=== PATIENT | female | born 1970 | race Caucasian/White ===

== ENCOUNTER 2018-05-28 12:10 | Observation (INO) | payer BC ==
[2018-05-28 13:18] VITALS: O2SAT 100
[2018-05-28 13:32] LABS: Absolute Lymphocytes (CBC) 1.6 K/uL (0.7-4.9); Absolute Monocytes 0.8 K/uL (0.1-1.3); Absolute Neutrophil 4.2 K/uL (1.8-8.0); Basophils % 0.6 % (0-1.3); Eosinophils % 2.2 % (0-4.4); Hematocrit 31.5 % (36.0-45.0); Lymphocytes % 23.6 % (15.3-44.8); MCH 30.4 pg (27.0-35.0); MPV 9.5 fL (7.6-11.3); Monocytes % 11.7 % (3.3-12.3); RBC Red Blood Cell Count 3.46 M/uL (3.86-4.86)
[2018-05-28 13:55] LABS: Rheumatoid Factor NEG (NEG)
--- NOTE | 2018-05-28 14:23 | RAD REPORT ---
EXAM DESCRIPTION: RAD - Chest Pa And Lat (2 Views) - 05/28/2018 2:10 pm CLINICAL HISTORY: Chest pain COMPARISON: December 2008 TECHNIQUE: PA and lateral views of the chest were obtained. FINDINGS: The lungs are clear of a focal consolidation, mass or significant failure finding. Lung ma rkings are not significantly different from the comparison. Diaphragm is flattened blunting the cost ophrenic angles. Heart size is normal and central vasculature is within normal limits. No pleural ef fusion or pneumothorax seen. Scoliotic curvature of the lower thoracic spine again noted. No acute b one finding. No aortic abnormality. IMPRESSION: No acute cardiopulmonary process. Chest is not significantly different from the compari son.
[2018-05-28 14:57] LABS: ALT/SGPT 15 U/L (12-78); AST/SGOT 8 U/L (15-37); Albumin 3.6 g/dL (3.4-5.0); Alkaline Phosphatase 40 U/L (45-117); BUN Blood Urea Nitrogen 6 mg/dL (7-18); Bicarbonate 31 mmol/L (21-32); Bilirubin Total 0.4 mg/dL (0.2-1.0); Glucose Level 76 mg/dL (74-106); Potassium 4.1 mmol/L (3.5-5.1); Protein, Total 6.5 g/dL (6.4-8.2); Sodium Level 145 mmol/L (136-145)
[2018-05-28 14:57] LABS: Urine Appearance CLEAR; Urine Bilirubin NEGATIVE (NEG); Urine Blood NEGATIVE (NEG); Urine Color YELLOW; Urine Glucose NEGATIVE (NEG); Urine Protein NEGATIVE (NEG); Urine Urobilinogen 0.2 mg/dL (0.2-1.0)
[2018-05-28 14:58] LABS: Urine Microscopic Reflex NO UMIC
--- NOTE | 2018-05-28 15:02 | RAD REPORT ---
EXAM DESCRIPTION: RIGHT - UPPER EXTREMITY VENOUS UNILATE - 05/28/2018 2:32 pm CLINICAL HISTORY: Right arm pain and swelling COMPARISON: None. TECHNIQUE: Real-time sonographic evaluation of the right upper extremity deep venous systems was per formed. FINDINGS: Normal compressibility, flow augmentation, phasic flow and spontaneous flow are identified in the right upper extremity axillary, brachial, radial and ulnar veins. Superficial basilic vein cl ear. Cephalic vein was not well visualized. No evidence for a thrombosed cephalic vein. No intralumin al filling defects seen. Internal jugular and subclavian veins are normal as well. IMPRESSION: No DVT in the right upper extremity.
[2018-05-29 07:45] VITALS: BP 111/51; TEMP 97.6
[2018-05-29] MEDS ORDERED: HOME MED 1 EA UNK (Brimonidine Tartrate/Timolol [Combigan 0.2%-0.5% Eye Drops] 1 DROP) EACH EYE SCH (09:00)
[2018-05-29] MEDS ORDERED: HOME MED 1 EA UNK (Brinzolamide [Azopt] 1 DROP) EACH EYE SCH (09:00)
[2018-05-29] MEDS ORDERED: APIXABAN PO SCH (09:00)
--- NOTE | 2018-05-29 12:59 | CON ---
Date of Consultation: 05/29/[address] Cooper's service on 05/28/2018. The patient was seen on 05/29/2018. Reason For Consultation: Bradycardia and chest pain. History Of Present Illness: Ms. Carbajal is a 48-year-old woman who was previously healthy until rece ntly when she developed the left upper extremity and right extremity venous thrombosis. Has been rhiannon ated with Eliquis since. She has a history of severe glaucoma for which she takes timolol, Azopt, an d Lumigan. Was seeing Dr. Cooper yesterday in his office for multiple complaints including chest pain throughout her anterior chest and lateral romo. She was having dizziness, tingling in the arms, fa tigue, was found to have a heart rate in the 30s, and she was admitted for further evaluation and rhiannon atment. She denied syncope. Denied PND, orthopnea, pedal edema, or palpitation. Repeat ultrasound of her right upper extremity was negative. Chest x-ray was negative. An echocardiogram that was don e was negative. Her TSH was normal. Her hemoglobin was 10.5. Allergies: SHE IS ALLERGIC TO PENICILLIN. Review of Systems: Negative. Social History: Negative. Medications At Home: Include Eliquis, timolol, Azopt, and Lumigan eyedrops. Physical Examination: General: Her heart rate was 43. She was in no acute distress, although she appeared to be fatigued. Vital Signs: Stable otherwise. HEENT: Negative. Neck: Supple without any bruit, lymphadenopathy, or JVD. Chest: Clear to auscultation and percussion. Cardiac: Revealed bradycardia with no murmurs, gallops, or rubs. Abdomen: Benign. Extremities: Revealed no clubbing, cyanosis, or edema. Diagnostic Data: As stated earlier. Impression And Plan: 1.I believe Ms. Carbajal's symptoms of chest pain, dizziness, tingling in the arms and fatigue are re lated to her bradycardia. I think her bradycardia is related to her eyedrops. Her TSH is normal. H er echocardiogram is normal. Her DVT has resolved on Eliquis, and I do not think this is related to her bradycardia or any of her symptoms. I will discuss the case further with Dr. Cooper; but what I w ashlynld like to do is talk to Dr. Stephen Addison, and see if there is any chance we can change her eyedr ops medication. If these eye drops are needed and she is still bradycardic, I think a pacemaker will be indicated. Meanwhile, I think she needs to have an outpatient 48 hour Holter and an outpatient s tress test and an appointment in the near future. By then, I would have discussed the case further w ronny Addison and electrophysiology services in [place]. MIREYA/VAN Voice ID: [id number] Report ID: [id number]
[2018-05-29] MEDS ORDERED: HOME MED 1 EA UNK (Bimatoprost [Lumigan Opthalmic Drops*] 1 DROP) EACH EYE SCH (21:00)
--- NOTE | 2018-05-29 21:13 | HP ---
Date of Admission: 05/28/2018 Chief Complaint: Chest pain, bradycardia. History Of Present Illness: A 48-year-old female who recently had right upper limb venous thrombus, was brought to the office because of atypical chest pain. She was examined and strikingly she had a pulse rate of 38. EKG was done. This confirmed bradycardia in view of chest pain even though it was atypical. Because of bradycardia, she was admitted for observation. There was no history of syncop e. The patient does not take any medications by mouth for any heart disease or blood pressure. Past Medical History: Positive for severe glaucoma, due to which she lost vision in the eye. Recent ly she was started on Eliquis for her DVT of the right arm. Family History: Noncontributory. Personal History: Currently nonsmoker. Home Medicines: Eliquis, eyedrops. Review of Systems: There is no history of fever, chills, rigors. Physical Examination: General: Revealed a 48-year-old female. Vital signs: Heart rate of 36, blood pressure 110/70. HEENT: Otherwise negative. Neck: Supple. JVD negative. Chest: Clear. Heart: Bradycardia. Abdomen: Soft. Extremities: No edema. Laboratory: Hemoglobin of 10.5, otherwise negative. Troponin normal. Chest x-ray negative. TSH no rmal. Assessment: 1.Bradycardia. 2.Atypical chest pain. 3.Severe glaucoma. 4.Recent deep vein thrombosis right arm. Plan: It is not clear why patient had such severe bradycardia. Cardiology consultation has been obt ained. Dr. Felipe is of the opinion that the patient very likely may be reacting to glaucoma medica tion. I spoke to Dr. Addison, who is her eye doctor. He is not able to cut down her eyedrops because of severe glaucoma with the fear of losing more vision. The patient currently will be discharged and she will be followed by Dr. Felipe in the office. Reassessment of her glaucoma and bradycardia aren l be done. NICHOL/VAN Voice ID: [id number]
--- NOTE | 2018-05-31 07:58 | ECHO ---
HEIGHT: 5 ft 5 in WEIGHT: 132 lb 0 oz DATE OF STUDY: 05/28/[address]: Trevon Cooper MD 2-DIMENSIONAL: YES M.MODE: YES DOPPLER: YES COLOR FLOW: YES TDS: NO PORTABLE: NO DEFINITY: NO BUBBLE STUDY: NO DIAGNOSIS: CHEST PAIN CARDIAC HISTORY: CATHERIZATION: NO SURGERY: NO PROSTHETIC VALVE: NO PACEMAKER: NO MEASUREMENTS (cm) DIASTOLIC (NORMALS) SYSTOLIC (NORMALS) IVSd 0.8 (0.6-1.2) LA Diam 3.4 (1.9-4.0) LVEF 66% LVIDd 5.5 (3.5-5.7) LVIDs 3.4 (2.0-3.5) %FS 37% LVPWd 0.8 (0.6-1.2) Ao Diam 2.8 (2.0-3.7) 2 DIMENSIONAL ASSESSMENT: RIGHT ATRIUM: NORMAL LEFT ATRIUM: NORMAL RIGHT VENTRICLE: NORMAL LEFT VENTRICLE: NORMAL TRICUSPID VALVE: NORMAL MITRAL VALVE: NORMAL PULMONIC VALVE: NORMAL AORTIC VALVE: NORMAL PERICARDIAL EFFUSION: NONE AORTIC ROOT: NORMAL LEFT VENTRICULAR WALL MOTION: NORMAL DOPPLER/COLOR FLOW: NORMAL COMMENTS: NORMAL 2D ECHOCARDIOGRAM WITH DOPPLER. NO WALL MOTION ABNORMALITY. NO EFFUSION. TECHNOLOGIST: Corey ROMAN
== END 2018-05-29 10:50 | disposition home or self-care (01) ==
LOC: 4TH 12:27
PROVIDERS: ADMIT Internal Medicine; ATTEND Internal Medicine
DX: R00.1 Bradycardia, unspecified (principal); R07.89 Other chest pain; H40.9 Unspecified glaucoma; Z86.718 Personal history of other venous thrombosis and embolism; Z79.01 Long term (current) use of anticoagulants; Z88.0 Allergy status to penicillin
CPT/HCPCS: 36415; 71046; 80053; 81003; 84443; 84484; 85025; 86038; 86430; 93306; 93971; G0378

== ENCOUNTER 2021-12-26 14:59 | Emergency (ER) | payer BC ==
--- OUTSIDE RECORDS SUMMARY | 2021-12-26 15:02 | XMS REPORT | Continuity of Care Document ---
:1970 Author Organization [facility] t Address [address] [place] [address] Care Team Providers Name Role Phone Pcp, Does Not Have A Primary Care Physician Nurse, Pob Immunization Attending Clinician Unavailable Drew Quick DO Attending Clinician DREW QUICK Attending Clinician Unavailable Barby VARGAS Attending Clinician Unavailable YESI Attending Clinician Unavailable Lab, Fam Pob I Attending Clinician Unavailable Yesi INSOLE STIFFENER Attending Clinician Doctor Unassigned, Name Attending Clinician Unavailable Keira Marrufo MD Attending Clinician KEIRA MARRUFO Attending Clinician Unavailable KEIRA MARRUFO Attending Clinician Unavailable Payers Payer Name Policy Type Policy Number Effective Date Expiration Date S ource Problems This patient has no known problems. Allergies, Adverse Reactions, Alerts Allergy Allergy Status Severity Reaction(s) Onset Inactive Treating Comm ents Source Name Type Date Date Clinician PENICILL Drug Active Rash 2016-10 Univers INS Class 0-06 ity of 00:00: [place] 00 Medical Branch Penicill Propensi Active Rash 2016-10 [facility] s ins ty to 0-06 ity of adverse 00:00: [place] reaction 00 Medical [facility] Social History Social Habit Start Date Stop Date Quantity Comments Source History of tobacco Smoker [facility] use [facility] [place] Exposure to Yes [facility] SARS-CoV-2 (event) Medica l Branch Tobacco use and 2020-05-29 2020-05-29 Never used [facility] exposure 00:00:00 00:00:00 Medical [place] Sex Ass[birth year] At [birth year] [facility] 00:00:00 00:00:00 [facility] Branch Smoking Status Start Date Stop Date Source Unknown if ever smoked [facility] Former smoker 2020-05-29 00:00:00 2020-05-29 00:00:00 [facility] henrietta [facility] Medications Ordered Filled Start Stop Current Ordering Indication Dosage Frequency Signature Comments Components Source Medication Medication Date Date Medication? Clinician (SIG) Name Name ibuprofen 0 Yes Take by Univ ers (ADVIL 9-18 mouth. ity of ORAL) 16:25: [address] ibuprofen 2020-0 Yes Take by Univ ers (ADVIL 9-18 mouth. ity of ORAL) 16:25: [address] ibuprofen 2020-0 Yes Take by Univ ers (ADVIL 9-18 mouth. ity of ORAL) 16:25: [address] ibuprofen 2020-0 Yes Take by Univ ers (ADVIL 9-18 mouth. ity of ORAL) 16:25: [address] ibuprofen 2020-0 Yes Take by Univ ers (ADVIL 9-18 mouth. ity of ORAL) 16:25: [address] ibuprofen 2020-0 Yes Take by Univ ers (ADVIL 9-18 mouth. ity of ORAL) 16:25: [address] ibuprofen 2020-0 Yes Take by Univ ers (ADVIL 9-18 mouth. ity of ORAL) 16:25: [address] ibuprofen 2020-0 Yes Take by Univ ers (ADVIL 9-18 mouth. ity of ORAL) 16:25: [address] ibuprofen 2020-0 Yes Take by Univ ers (ADVIL 9-18 mouth. ity of ORAL) 16:25: [address] ibuprofen 2020-0 Yes Take by Univ ers (ADVIL 9-18 mouth. ity of ORAL) 16:25: [address] ibuprofen 2020-0 Yes Take by Univ ers (ADVIL 9-18 mouth. ity of ORAL) 11:25: [address] diclofenac 2020-0 Yes [id number] 75mg Take 1 U nivers 75 mg EC 9-18 tablet by ity of tablet 00:00: mouth 3 [place] 00 (three) Medical times Branch daily with meals. Use on prn basis and not with other anti-infla mmatory medication s. cyclobenzap 2019-0 Yes [id number] 10mg Take 1 Univers rine 10 mg 9-18 tablet by ity of tablet 00:00: mouth (three) Medical times Branch daily as needed for Muscle Spasms. diclofenac 2020-0 Yes [id number] 75mg Take 1 U nivers 75 mg EC 9-18 tablet by ity of tablet 00:00: mouth (three) Medical times Branch daily with meals. Use on prn basis and not with other anti-infla mmatory medication s. cyclobenzap 2020-0 Yes [id number] 10mg Take 1 Univers rine 10 mg 9-18 tablet by ity of tablet 00:00: mouth (three) Medical times Branch daily as needed for Muscle Spasms. diclofenac 2020-0 Yes [id number] 75mg Take 1 U nivers 75 mg EC 9-18 tablet by ity of tablet 00:00: mouth (three) Medical times Branch daily with meals. Use on prn basis and not with other anti-infla mmatory medication s. cyclobenzap 2020-0 Yes [id number] 10mg Take 1 Univers rine 10 mg 9-18 tablet by ity of tablet 00:00: mouth (three) Medical times Branch daily as needed for Muscle Spasms. diclofenac 2020-0 Yes [id number] 75mg Take 1 U nivers 75 mg EC 9-18 tablet by ity of tablet 00:00: mouth (three) Medical times Branch daily with meals. Use on prn basis and not with other anti-infla mmatory medication s. cyclobenzap 2020-0 Yes [id number] 10mg Take 1 Univers rine 10 mg 9-18 tablet by ity of tablet 00:00: mouth (three) Medical times Branch daily as needed for Muscle Spasms. diclofenac 2020-0 Yes [id number] 75mg Take 1 U nivers 75 mg EC 9-18 tablet by ity of tablet 00:00: mouth (three) Medical times Branch daily with meals. Use on prn basis and not with other anti-infla mmatory medication s. cyclobenzap 2020-0 Yes [id number] 10mg Take 1 Univers rine 10 mg 9-18 tablet by ity of tablet 00:00: mouth (three) Medical times Branch daily as needed for Muscle Spasms. diclofenac 2020-0 Yes [id number] 75mg Take 1 U nivers 75 mg EC 9-18 tablet by ity of tablet 00:00: mouth (three) Medical times Branch daily with meals. Use on prn basis and not with other anti-infla mmatory medication s. cyclobenzap 2020-0 Yes [id number] 10mg Take 1 Univers rine 10 mg 9-18 tablet by ity of tablet 00:00: mouth (three) Medical times Branch daily as needed for Muscle Spasms. diclofenac 2020-0 Yes [id number] 75mg Take 1 U nivers 75 mg EC 9-18 tablet by ity of tablet 00:00: mouth (three) Medical times Branch daily with meals. Use on prn basis and not with other anti-infla mmatory medication s. cyclobenzap 2020-0 Yes [id number] 10mg Take 1 Univers rine 10 mg 9-18 tablet by ity of tablet 00:00: mouth (three) Medical times Branch daily as needed for Muscle Spasms. diclofenac 2020-0 Yes [id number] 75mg Take 1 U nivers 75 mg EC 9-18 tablet by ity of tablet 00:00: mouth (three) Medical times Branch daily with meals. Use on prn basis and not with other anti-infla mmatory medication s. cyclobenzap 2020-0 Yes [id number] 10mg Take 1 Univers rine 10 mg 9-18 tablet by ity of tablet 00:00: mouth (three) Medical times Branch daily as needed for Muscle Spasms. diclofenac 2020-0 Yes [id number] 75mg Take 1 U nivers 75 mg EC 9-18 tablet by ity of tablet 00:00: mouth (three) Medical times Branch daily with meals. Use on prn basis and not with other anti-infla mmatory medication s. cyclobenzap 2020-0 Yes [id number] 10mg Take 1 Univers rine 10 mg 9-18 tablet by ity of tablet 00:00: mouth (three) Medical times Branch daily as needed for Muscle Spasms. diclofenac 2020-0 Yes [id number] 75mg Take 1 U nivers 75 mg EC 9-18 tablet by ity of tablet 00:00: mouth (three) Medical times Branch daily with meals. Use on prn basis and not with other anti-infla mmatory medication s. cyclobenzap 2020-0 Yes [id number] 10mg Take 1 Univers rine 10 mg 9-18 tablet by ity of tablet 00:00: mouth 3 00 (three) Medical times Branch daily as needed for Muscle Spasms. diclofenac 2020-0 Yes [id number] 75mg Take 1 U nivers 75 mg EC 9-18 tablet by ity of tablet 00:00: mouth 3 00 (three) Medical times Branch daily with meals. Use on prn basis and not with other anti-infla mmatory medication s. cyclobenzap 2020-0 Yes [id number] 10mg Take 1 Univers rine 10 mg 9-18 tablet by ity of tablet 00:00: mouth 3 00 (three) Medical times Branch daily as needed for Muscle Spasms. ALPHAGAN P 2020-0 Yes INSTILL 1 Un jia 0.1 % 9-02 DROP IN ity of ophthalmic 00:00: B[place] drops 00 2 TIMES Medical DAILY Branch ALPHAGAN P 2020-0 Yes INSTILL 1 Un jia 0.1 % 9-02 DROP IN ity of ophthalmic 00:00: [place] drops 00 2 TIMES Medical DAILY Branch ALPHAGAN P 2020-0 Yes INSTILL 1 Un jia 0.1 % 9-02 DROP IN ity of ophthalmic 00:00: [place] drops 00 2 TIMES Medical DAILY Branch ALPHAGAN P 2020-0 Yes INSTILL 1 Un jia 0.1 % 9-02 DROP IN ity of ophthalmic 00:00: [place] drops 00 2 TIMES Medical DAILY Branch ALPHAGAN P 2020-0 Yes INSTILL 1 Un jia 0.1 % 9-02 DROP IN ity of ophthalmic 00:00: [place] drops 00 2 TIMES Medical DAILY Branch ALPHAGAN P 2020-0 Yes INSTILL 1 Un jia 0.1 % 9-02 DROP IN ity of ophthalmic 00:00: [place] drops 00 2 TIMES Medical DAILY Branch ALPHAGAN P 2020-0 Yes INSTILL 1 Un jia 0.1 % 9-02 DROP IN ity of ophthalmic 00:00: B[place]YES [place] drops 00 2 TIMES Medical DAILY Branch ALPHAGAN P 2020-0 Yes INSTILL 1 Un jia 0.1 % 9-02 DROP IN ity of ophthalmic 00:00: B[place]YES [place] drops 00 2 TIMES Medical DAILY Branch ALPHAGAN P 2020-0 Yes INSTILL 1 Un jia 0.1 % 9-02 DROP IN ity of ophthalmic 00:00: B[place]YES [place] drops 00 2 TIMES Medical DAILY Branch ALPHAGAN P 2020-0 Yes INSTILL 1 Un jia 0.1 % 9-02 DROP IN ity of ophthalmic 00:00: B[place]YES [place] drops 00 2 TIMES Medical DAILY Branch ALPHAGAN P 2020-0 Yes INSTILL 1 Un jia 0.1 % 9-02 DROP IN ity of ophthalmic 00:00: [place] drops 00 2 TIMES Medical DAILY Branch phenazopyri 2016- Yes 200mg Take 1 Uni vers dine 200 mg 0-06 tablet by ity of tablet 00:00: mouth (three) Medical times Branch daily. phenazopyri 2016- Yes 200mg Take 1 Uni vers dine 200 mg 0-06 tablet by ity of tablet 00:00: mouth (three) Medical times Branch daily. phenazopyri 2016- Yes 200mg Take 1 Uni vers dine 200 mg 0-06 tablet by ity of tablet 00:00: mouth (three) Medical times Branch daily. phenazopyri 2016-10 Yes 200mg Take 1 Uni vers dine 200 mg 0-06 tablet by ity of tablet 00:00: mouth (three) Medical times Branch daily. phenazopyri 2016-10 Yes 200mg Take 1 Uni vers dine 200 mg 0-06 tablet by ity of tablet 00:00: mouth (three) Medical times Branch daily. phenazopyri 2016- Yes 200mg Take 1 Uni vers dine 200 mg 0-06 tablet by ity of tablet 00:00: mouth (three) Medical times Branch daily. phenazopyri 2016- Yes 200mg Take 1 Uni vers dine 200 mg 0-06 tablet by ity of tablet 00:00: mouth (three) Medical times Branch daily. phenazopyri 2016- Yes 200mg Take 1 Uni vers dine 200 mg 0-06 tablet by ity of tablet 00:00: mouth 3 (three) Medical times Branch daily. phenazopyri 2016- Yes 200mg Take 1 Uni vers dine 200 mg 0-06 tablet by ity of tablet 00:00: mouth 3 (three) Medical times Branch daily. phenazopyri 2017- Yes 200mg Take 1 Uni vers dine 200 mg 0-06 tablet by ity of tablet 00:00: mouth 3 (three) Medical times Branch daily. phenazopyri 2017- Yes 200mg Take 1 Uni vers dine 200 mg 0-06 tablet by ity of tablet 00:00: mouth 3 (three) Medical times Branch daily. phenazopyri 2016- Yes 200mg Take 1 Uni vers dine 200 mg 0-06 tablet by ity of tablet 00:00: mouth 3 (three) Medical times Branch daily. phenazopyri 2016- Yes 200mg Take 1 Uni vers dine 200 mg 0-06 tablet by ity of tablet 00:00: mouth 3 (three) Medical times Branch daily. phenazopyri 2016- Yes 200mg Take 1 Uni vers dine 200 mg 0-06 tablet by ity of tablet 00:00: mouth (three) Medical times Branch daily. phenazopyri 2016- Yes 200mg Take 1 Uni vers dine 200 mg 0-06 tablet by ity of tablet 00:00: mouth (three) Medical times Branch daily. phenazopyri 2016- Yes 200mg Take 1 Uni vers dine 200 mg 0-06 tablet by ity of tablet 00:00: mouth (three) Medical times Branch daily. phenazopyri 2016- Yes 200mg Take 1 Uni vers dine 200 mg 0-06 tablet by ity of tablet 00:00: mouth [place] (three) Medical times Branch daily. Immunizations Ordered Filled Immunization Date Status Comments [facility] e Immunization Name Name SARS-COV-2 COVID-19 2021-08-26 Completed Unive rsity of PFIZER VACCINE 00:00:00 [facility] SARS-COV-2 COVID-19 2021-01-23 Completed Unive rsity of PFIZER VACCINE 00:00:00 [facility] SARS-COV-2 COVID-19 2021-01-02 Completed Unive rsity of PFIZER VACCINE 00:00:00 [facility] Vital Signs Vital Name Observation Time Observation Value Comments Source Systolic blood 2020-06-29 16:24:00 127 mm[Hg] Univer sity of pressure [facility] Diastolic blood 2020-06-29 16:24:00 71 mm[Hg] Unive rsity of pressure [facility] Heart rate 2020-06-29 16:24:00 53 /min Universi ty [facility] Body temperature 2020-06-29 16:24:00 36.72 [facility] [place] [facility] Respiratory rate 2020-06-29 16:24:00 18 /min [facility] [place] [facility] Body height 2020-06-29 16:24:00 160 cm Universi ty of [facility] Body weight 2020-06-29 16:24:00 76.204 kg Universi ty of [facility] BMI 2020-06-29 16:24:00 29.76 kg/m2 Universi ty [facility] Systolic blood 2020-05-29 19:02:00 150 mm[Hg] Univer sity of pressure [facility] Diastolic blood 2020-05-29 19:02:00 86 mm[Hg] Unive rsity of [facility] Heart rate 2020-05-29 19:02:00 52 /min Universi ty [facility] Body temperature 2020-05-29 19:02:00 36.78 [facility] [place] [facility] Body weight 2020-05-29 19:02:00 77.111 kg Universi ty [facility] BMI 2020-05-29 19:02:00 30.11 kg/m2 Universi ty [facility] Procedures Procedure Date / Time Performed Performing Clinician [facility] e SARS-COV-2 COVID-19 2021-08-26 22:30:34 [facility]igned, [facility]IM Name [facility] [place] (PFIZER) EXTERNAL PROVIDER 2020-11-09 06:01:00 Doctor Unassigned, No [facility] RECORDS [facility] Medical Branch MR LUMBAR SPINE WO 2020-06-12 19:49:[address] [facility] Medical [place] ASSIGNMENT OF BENEFITS 2020-06-12 18:40:04 Doctor Unassigned, No [facility] Medical Branch ASSIGNMENT OF BENEFITS 2020-05-29 18:46:35 Doctor Unassigned, No [facility] Encounters Start End Encounter Admission Attending Care Care Encounter Source Date/Time Date/Time Type Type Clinicians Facility Department ID 2021-08-26 2021-08-26 Imm/Inj Nurse, Adc Pob Immunization [facility] [id number] [id number] Univers 16:18:28 16:19:14 Visit Jonah Balta Drew IBANEZ [id number] .10 [id number] [id number] Me dical NAL 421 [facility] 2021-08-26 2021-08-26 [facility] [id number] Univers 16:10:00 16:10:00 BALTA [facility] 2021-01-23 2021-01-23 Outpatient R ALICIA [facility] [id number] Univers 15:50:00 15:50:00 ANDERS [facility] 2021-01-02 2021-01-02 Outpatient [facility] [id number] Univers 16:10:00 16:10:00 [facility] 2020-12-27 2020-12-27 Patient Jonah [facility] [id number] Univers 00:00:00 00:00:00 Outreach Balta GEOFF [id number] i ty Drew [facility] [id number] [id number] Me dical [address] [place] 2020-12-23 2020-12-23 Outpatient R [facility] [id number] Univers 13:40:00 13:40:00 [id number] [facility] 2020-12-23 2020-12-23 Outpatient R [facility] [id number] Univers 13:40:00 13:40:00 [facility] 2020-12-23 2020-12-23 Laboratory Lab, [facility] Fam Pob I [facility] 1.2. [id number] [id number] Univers 12:28:47 12:48:47 Only [facility] [id number] ity of [place] [id number] [place] as Professio [phone] Me dical nal [address] [place] [address] 2020-11-09 2020-11-09 Orders Doctor DARLENE 1.2.840.114 [id number] Univers 00:00:00 00:00:00 Only Unassigned, LIN [id number] ity of [place] [facility] [id number] [place] [phone] [address] 2020-08-08 2020-08-08 Telephone Niru [facility] .[id number] Univers 00:00:00 00:00:00 Jose Ibanez [id number] ity [id number] [phone] Nh dical nal [address] [place] [address] 2020-08-07 2020-08-07 Outpatient R [facility] [id number] Univers 12:00:00 12:00:00 [id number] [facility] 2020-08-07 2020-08-07 Outpatient R NIRUJOSE Coffey [facility] [id number] Univers 12:00:00 12:00:00 JOSE MARRUFO [facility] 2020-06-29 2020-06-29 Office Niru [facility] 1.2.840.114 [id number] Univers 11:11:10 11:49:02 Visit Jose Ibanez [id number] [id number] [phone] Nh dical nal [address] [place] [address] 2020-06-29 2020-06-29 Outpatient JOSE MARRUFO [facility] [id number] Univers 11:20:00 11:20:00 JOSE MARRUFO [id number] [facility] 2020-06-29 2020-06-29 Outpatient R INRUJOSE Coffey [facility] [id number] Univers 11:20:00 11:20:00 NIRU JOSE trena [facility] 2020-06-13 2020-06-13 Telephone Niru [facility] 1.2.840.114 [id number] Univers 00:00:00 00:00:00 Jose Ibanez [id number] [id number] [phone] Nh dical nal 092 [facility] 2020-06-12 2020-06-12 Hospital Niru [facility] [id number] Univers 13:49:20 23:59:00 Encounter Jose Ibanez [id number] [id number] [id number] [facility] 804 [place] 2020-06-12 2020-06-12 Outpatient Sierra NIRUJOSE LINDSEY [facility] [id number] Univers 14:00:00 14:00:00 NIRUJOSE Coffey [id number] ity [facility] 2020-06-12 2020-06-12 Outpatient R NIRUJOSE Coffey [facility] [id number] Univers 00:00:00 00:00:00 NIRUJOSE Coffey ity [facility] 2020-06-12 2020-06-12 Orders Doctor DARLENE [id number] [id number] Univers 00:00:00 00:00:00 Only Unassigned, LIN [id number] ity of [place] [facility] [id number] [place] as [id number] [facility] 009 [place] 2020-05-29 2020-05-29 Office Niru [facility] 1.2.840.114 [id number] Univers 13:48:08 15:10:10 Visit Jose Ibanez [id number] [id number] [facility] [phone] [facility] nal 2 [facility] 2020-05-29 2020-05-29 Outpatient R NIRUJOSE LINDSEY [facility] [id number] Univers 13:40:00 13:40:00 [facility] 2020-05-29 2020-05-29 Orders Doctor DARLENE 1.2.840.114 [id number] Univers 00:00:00 00:00:00 Only Unassigned, LIN [id number] ity of [place] [facility] [id number] [place] [phone] [address] Results Test Test Test Results Result Source Description Time Comments Comments MR LUMBAR SPINE HISTORY: History of fall [facility] several weeks ago and Te [facility] 19:57:32 having back pain and Bran ch leftleg pain. TECHNIQUE: Sagittal T2 FRFSE, T1, STIR and axial T2 FRFSE T1 studies oflumbar spines are obtained. Additional coronal T2 FRFSE study is alsoobtained. FINDINGS: Exaggerated lumbosacral lordosis with mild dextroscoliosis noted.No acute compression fracture or aggressive lesions of the bones detected.Spinal canal appears to be of adequate size and normal conus/cauda equinaare found at the level of T12/L1. Visualized retroperitoneum isunremarkable for aortic aneurysm or enlarged lymph nodes or hydronephrosis. T11-T12, T12-L1, L1-L2: Unremarkable. L2-L3: Minimal annular bulge causing minimal thecal sac compression. Nosignificant foraminal encroachment. L3-L4: Minimal annular bulge. Slightly thickened ligamentum flavum fromfacet arthritis. No significant thecal sac compression or foraminalencroachment. L4-L5: Minimal disc desiccation with minimal bulging of the disc, bilateralhypertrophic facet arthritis with thickened ligamentum flavum and smallamount of fluid in both facet joints. Mild circumferential thecal saccompression noted. Foraminal encroachment is seen on both sides, slightlymore on the right side but minimal nerve root compression suspected.Adjacent to lower outer edge of the left facet joint, 7 mm sizemultilocular synovial cyst noted. L5-S1: Minimal anterior listhesis of L5 over S1 with minimal disc bulgewithout thecal sac compression. Hypertrophic bilateral facet arthritis withfluid in both facet joints. Adjacent to the outer edge of the left facetjoint, there is a multilocular 1.5 x 0.8 cm synovial cyst. In addition,thick walled 6 to 8 mm I synovial cyst are seen protruding into the spinalcanal from both facet joints causing thecal sac compression and nerve rootcompression, more on the left side. CONCLUSIONS:1. Exaggerated lumbosacral lordosis with mild dextroscoliosis of lumbarspines.2. Multilevel facet arthritis, more severe at lower 2 lumbar levels withsynovial cysts encroaching into the spinal canal on both sides, more on theleft side, at L5-S1 causing thecal sac and nerve root compression.3. 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 [facility], Radiant Results Inft User - 06/12/2020 2:58 PM CDTHISTORY: History of fall several weeks ago and having back pain and leftleg pain.TECHNIQUE: Sagittal T2 FRFSE, T1, STIR and axial T2 FRFSE T1 studies oflumbar spines are obtained. Additional coronal T2 FRFSE study is alsoobtained.FINDINGS: Exaggerated lumbosacral lordosis with mild dextroscoliosis noted.No acute compression fracture or aggressive lesions of the bones detected.Spinal canal appears to be of adequate size and normal conus/cauda equinaare found at the level of T12/L1. Visualized retroperitoneum isunremarkable for aortic aneurysm or enlarged lymph nodes or hydronephrosis.T11-T12, T12-L1, L1-L2: Unremarkable.L2-L3: Minimal annular bulge causing minimal thecal sac compression. Nosignificant foraminal encroachment.L3-L4: Minimal annular bulge. Slightly thickened ligamentum flavum fromfacet arthritis. No significant thecal sac compression or foraminalencroachment.L4-L 5: Minimal disc desiccation with minimal bulging of the disc, bilateralhypertrophic facet arthritis with thickened ligamentum flavum and smallamount of fluid in both facet joints. Mild circumferential thecal saccompression noted. Foraminal encroachment is seen on both sides, slightlymore on the right side but minimal nerve root compression suspected.Adjacent to lower outer edge of the left facet joint, 7 mm sizemultilocular synovial cyst noted.L5-S1: Minimal anterior listhesis of L5 over S1 with minimal disc bulgewithout thecal sac compression. Hypertrophic bilateral facet arthritis withfluid in both facet joints. Adjacent to the outer edge of the left facetjoint, there is a multilocular 1.5 x 0.8 cm synovial cyst. In addition,thick walled 6 to 8 mm I synovial cyst are seen protruding into the spinalcanal from both facet joints causing thecal sac compression and nerve rootcompression, more on the left side.CONCLUSIONS:1. Exaggerated lumbosacral lordosis with mild dextroscoliosis of lumbarspines.2. Multilevel facet arthritis, more severe at lower 2 lumbar levels withsynovial cysts encroaching into the spinal canal on both sides, more on theleft side, at L5-S1 causing thecal sac and nerve root compression.3. 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
[2021-12-26] MEDS ORDERED: KETOROLAC 30 MG/ML INJ ONE (15:28)
[2021-12-26] MEDS ORDERED: NA CHLORIDE 0.9% 1,000 ML ONE (15:31)
[2021-12-26 15:34] LABS: Urine Blood Trace-intact (Negative); Urine Glucose Negative (Negative); Urine Protein 2+ (Negative); Urine Specific Gravity 1.025 (1.005-1.030)
[2021-12-26 15:45] LABS: Absolute Lymphocytes (CBC) 1.5 K/uL (0.7-4.9); Hematocrit 34.2 % (36.0-45.0); Lymphocytes % 9.4 % (15.3-44.8); MPV 8.9 fL (7.6-11.3)
[2021-12-26 16:03] LABS: ALT/SGPT 13 U/L (12-78); AST/SGOT 10 U/L (15-37); Albumin 3.5 g/dL (3.4-5.0); Alkaline Phosphatase 64 U/L (45-117); BUN Blood Urea Nitrogen 11 mg/dL (7-18); Bicarbonate 30 mmol/L (21-32); Glucose Level 103 mg/dL (74-106); Lipase 92 U/L (73-393); Protein, Total 7.3 g/dL (6.4-8.2); Sodium Level 139 mmol/L (136-145)
[2021-12-26 16:24] LABS: Urine Bacteria 20-50 /HPF (<20)
--- NOTE | 2021-12-26 17:02 | RAD REPORT ---
EXAM DESCRIPTION: CT - Abdomen Pelvis W Contrast - 12/26/2021 4:30 pm CLINICAL HISTORY: RLQ PAIN COMPARISON: No comparisonsNo comparisons TECHNIQUE: Biphasic, helical CT imaging of the abdomen and pelvis was performed following 100 ml non -ionic IV contrast. No oral contrast was given. All CT scans are performed using dose optimization technique as appropriate and may include automated exposure control or mA/KV adjustment according to patient size. FINDINGS: No suspicious findings in the lung bases. The liver, spleen, and pancreas show no suspicious findings.Normal variant Reidel lobe configuration of liver. Gallbladder and biliary tree are also without suspicious finding. Symmetric renal function is seen with no hydronephrosis or suspicious renal mass. No pyelonephritis o r acute parenchymal process. No bladder abnormalities. No adrenal abnormalities. No uterine or ovaria n abnormality evident. No dilated bowel loops or bowel wall thickening. Moderately large stool volume fills the colon. No ap pendicitis findings. No free air, free fluid or inflammatory stranding. No hernia, mass or bulky lym phadenopathy. No suspicious bony findings. Patient has very advanced for age degenerative changes at the L4-5 and L 5-S1 facet joints. IMPRESSION: Contrast enhanced CT abdomen and pelvis showing no acute or emergent finding. Nonacute findings detailed in the body of the report.
--- NOTE | 2021-12-26 17:17 | ER ---
Nurse's Notes [facility] Name: Johanna Carbajal Age: 51 yrs Sex: Female : 1970 Arrival Date: 12/26/2021 Time: 15:03 Bed 16 Private MD: Diagnosis: UTI/ Urinary tract infection, site not specified;Hypokalemia;Lower abdominal pain, unspecified Presentation: 12/26 15:06 Chief complaint: Patient states: i thought i had a UTI, that started Thursday. my right tw2 side was hurting and into my back. i called my dr today and i just left from there and my urine was clear. so they sent me here to rule out appendicitis. Coronavirus screen: At this time, the client does not indicate any symptoms associated with coronavirus-19. Ebola Screen: Patient denies travel to an Ebola-affected area in the 21 days before illness onset. Initial Sepsis Screen: Does the patient meet any 2 criteria? No. Patient's initial sepsis screen is negative. Does the patient have a suspected source of infection? No. Patient's initial sepsis screen is negative. Risk Assessment: Do you want to hurt yourself or someone else? Patient reports no desire to harm self or others. Onset of symptoms was December 26, 2021. 15:06 Method Of Arrival: Ambulatory tw2 15:06 Acuity: YANETH 3 tw2 Triage Assessment: 15:11 General: Appears in no apparent distress. well groomed, Behavior is calm, cooperative, tw2 appropriate for age. Pain: Complains of pain in right lower quadrant Pain radiates to back. GI: Reports lower abdominal pain, upper abdominal pain. 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 - Social history:: Smoking status: Patient denies any tobacco usage or history of. Screenin:14 Abuse screen: Denies threats or abuse. Nutritional screening: No deficits noted. tw2 Tuberculosis screening: No symptoms or risk factors identified. Fall Risk None identified. Assessment: 15:25 Reassessment: No changes from previously documented assessment. Pain: Complains of pain jg9 in right lower quadrant Pain does not radiate. Pain currently is 3 out of 10 on a pain scale. at worst was 6 out of 10 on a pain scale. 15:25 GI: Bowel sounds present X 4 quads. Abd is soft Abdomen is tender to palpation in right jg9 upper quadrant and right lower quadrant. Vital Signs: 15:06 BP 112 / 79; Pulse 81; Resp 18; Temp 98.1(TE); Pulse Ox 99% on R/A; Weight 70.76 kg tw2 (R); Height 5 ft. 3 in. (160.02 cm); Pain 4/10; 15:55 BP 95 / 70; Pulse 69; Resp 17 S; Pulse Ox 100% on R/A; jg9 16:15 BP 99 / 62; Pulse 63; Resp 17 S; Pulse Ox 100% on R/A; jg9 17:15 BP 113 / 67; Pulse 68; Resp 15 S; Pulse Ox 98% on R/A; Pain 0/10; jg9 15:06 Body Mass Index 27.63 (70.76 kg, 160.02 cm) tw2 ED Course: 15:03 Patient arrived in ED. ds1 15:08 Triage completed. tw2 15:11 Arm band placed on. tw2 15:11 Bed in low position. Call light in reach. tw2 15:15 Sloan Gr MD is Attending Physician. jr11 15:27 Roseline Mccabe, MARISELA is Primary Nurse. jg9 15:30 Inserted saline lock: 22 gauge in right antecubital area, using aseptic technique. jg9 Blood collected. 15:34 Urine Dipstick-Ancillary Sent. mh5 15:34 Urine Microscopic Only Sent. mh5 15:34 Urine collected: clean catch specimen, cloudy. mh5 15:35 Warm blanket given. Pulse ox on. NIBP on. mh5 16:30 CT Abd/Pelvis - IV Contrast Only In Process Unspecified. EDMS 17:30 No provider procedures requiring assistance completed. jg9 17:30 IV discontinued. jg9 Administered Medications: 15:33 Drug: Ketorolac 15 mg Route: IVP; Site: left antecubital; jg9 16:00 Follow up: Response: No adverse reaction; Pain is decreased jg9 15:34 Drug: NS 0.9% 1000 ml Route: IV; Rate: 1 bolus; Site: left antecubital; jg9 16:15 Follow up: IV Status: Completed infusion; IV Intake: 1000ml jg9 17:24 Drug: Cipro (ciprofloxacin) 500 mg Route: PO; jg9 17:25 Follow up: Response: No adverse reaction; Medication administered at discharge. jg9 17:25 Drug: Potassium Chloride 40 mEq Route: PO; jg9 17:25 Follow up: Response: No adverse reaction; Medication administered at discharge. jg9 Intake: 16:15 IV: 1000ml; Total: 1000ml. jg9 Outcome: 17:16 Discharge ordered by . jr11 17:30 Discharged to home ambulatory. jg9 17:30 Condition: stable 17:30 Discharge instructions given to patient, Instructed on discharge instructions, follow up and referral plans. Demonstrated understanding of instructions, follow-up care, Prescriptions given X 2. 17:31 Patient left the ED. jg9 Signatures: Dispatcher [employer] EDHI Carmen Corona ds1 Wendy uBrgos RN RN tw2 Morelia Oliveira Roseline Jorgensen RN RN jg9 Sloan Gr MD MD jr11 Corrections: (The following items were deleted from the chart) 15:11 15:10 Home Meds: None; 15:11 15:10 Home Meds: Glaucoma;
--- NOTE | 2021-12-26 17:17 | EDPHYS ---
Physician Documentation [facility] Name: Johanna Carbajal Age: 51 yrs Sex: Female : 1970 Arrival Date: 12/26/2021 Time: 15:03 Bed 16 Private MD: ED Physician Sloan Gr HPI: 12/26 15:25 This 51 yrs old Female presents to ER via Ambulatory with complaints of Abdominal Pain. jr11 15:25 The patient presents with abdominal pain right lower quadrant. Onset: The jr11 symptoms/episode began/occurred 4 day(s) ago. The symptoms do not radiate. Associated signs and symptoms: Pertinent positives: dysuria, Pertinent negatives: nausea and vomiting, diarrhea, palpitations, shortness of breath. The symptoms are described as dull, intermittent. Modifying factors: The symptoms are alleviated by nothing, the symptoms are aggravated by nothing. Severity of pain: At its worst the pain was moderate in the emergency department the pain is a 3 / 10. no history of abdominal surgeries. 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 - Social history:: Smoking status: Patient denies any tobacco usage or history of. ROS: 15:25 All other systems are negative. jr11 17:17 Constitutional: Negative for fever, chills jr11 Exam: 15:25 Constitutional: This is a well developed, well nourished patient who is awake, alert, jr11 and in no acute distress. Head/Face: Normocephalic, atraumatic. Eyes: Extra-ocular motions intact. Lids and lashes normal. Conjunctiva and sclera are non-icteric and not injected. Cornea within normal limits. Periorbital areas with no swelling, redness, or edema. ENT: Nares patent. No nasal discharge, no septal abnormalities noted. Oropharynx with no redness, swelling, or masses, exudates, or evidence of obstruction, uvula midline. Mucous membranes moist. Cardiovascular: Regular rate and rhythm with a normal S1 and S2. No gallops, murmurs, or rubs. Normal PMI, no JVD. No pulse deficits. Respiratory: Lungs have equal breath sounds bilaterally, clear to auscultation and percussion. No rales, rhonchi or wheezes noted. No increased work of breathing, no retractions or nasal flaring. Abdomen/GI: TTP RLQ, no peritoneal signs Back: No spinal tenderness. No costovertebral tenderness. Full range of motion. MS/ Extremity: Pulses equal, no cyanosis. Neurovascular intact. Full, normal range of motion. Neuro: Awake and alert, GCS 15, oriented to person, place, time, and situation. No gross motor or sensory deficits. Vital Signs: 15:06 BP 112 / 79; Pulse 81; Resp 18; Temp 98.1(TE); Pulse Ox 99% on R/A; Weight 70.76 kg tw2 (R); Height 5 ft. 3 in. (160.02 cm); Pain 4/10; 15:55 BP 95 / 70; Pulse 69; Resp 17 S; Pulse Ox 100% on R/A; jg9 16:15 BP 99 / 62; Pulse 63; Resp 17 S; Pulse Ox 100% on R/A; jg9 17:15 BP 113 / 67; Pulse 68; Resp 15 S; Pulse Ox 98% on R/A; Pain 0/10; jg9 15:06 Body Mass Index 27.63 (70.76 kg, 160.02 cm) tw2 MDM: 15:23 Patient medically screened. jr11 15:25 Differential diagnosis: appendicitis, diverticulitis, non-specific abd pain, urinary jr11 tract infection. Data reviewed: vital signs, nurses notes, lab test result(s), radiologic studies. ED course: Patient is a 51 with worsening right lower quadrant pain, given location will rule out appendicitis with a CT scan and also any other acute intra-abdominal pathology. Also send for urine to rule out UTI. Patient also to be ruled out for kidney stone.. 17:15 ED course: Patient came back positive for urinary tract infection, pain is under jr11 control, she does have a leukocytosis but normal vital signs. No concern for sepsis. Symptoms have been going on for most a week. Will treat with antibiotics, strict return precautions. Pain is under control, patient reassessed. Patient also with slight hypokalemia, will replete in the ED and asked her to continue on high potassium rich diet for 1 week. 12/26 15:24 Order name: CBC with Diff; Complete Time: 16:24 [facility] 12/26 15:24 Order name: CMP; Complete Time: 16:24 [facility] 12/26 15:24 Order name: Lipase; Complete Time: 16:24 [facility] 12/26 15:24 Order name: Urine Microscopic Only; Complete Time: 16:25 [facility] 12/26 15:34 Order name: Urine Dipstick-Ancillary [facility] 12/26 15:34 Order name: Urine Dipstick-Ancillary; Complete Time: 15:45 [facility] 12/26 15:24 Order name: CT Abd/Pelvis - IV Contrast Only; Complete Time: 17:12 [facility] 12/26 15:24 Order name: IV Saline Lock; Complete Time: 15:33 [facility] 12/26 15:24 Order name: Labs collected and sent; Complete Time: 15:33 [facility] 12/26 16:26 Order name: Urine Culture [facility] Administered Medications: 15:33 Drug: Ketorolac 15 mg Route: IVP; Site: left antecubital; jg9 16:00 Follow up: Response: No adverse reaction; Pain is decreased 9 15:34 Drug: NS 0.9% 1000 ml Route: IV; Rate: 1 bolus; Site: left antecubital; jg9 16:15 Follow up: IV Status: Completed infusion; IV Intake: 1000ml j9 17:24 Drug: Cipro (ciprofloxacin) 500 mg Route: PO; jg9 17:25 Follow up: Response: No adverse reaction; Medication administered at discharge. jg9 17:25 Drug: Potassium Chloride 40 mEq Route: PO; jg9 17:25 Follow up: Response: No adverse reaction; Medication administered at discharge. jg9 Disposition Summary: 12/26/21 17:16 Discharge Ordered Location: Home [facility] Condition: Stable jr11 Diagnosis - UTI/ Urinary tract infection, site not specified jr11 - Hypokalemia jr11 - Lower abdominal pain, unspecified jr11 Discharge Instructions: - Discharge Summary Sheet jr11 - Abdominal Pain, Adult jr11 - Urinary Tract Infection, Adult jr11 - Hypokalemia jr11 Forms: - Medication Reconciliation Form jr11 - Thank You Letter jr11 - Antibiotic Education jr11 - Prescription Opioid Use jr11 Prescriptions: - Ibuprofen 600 mg Oral Tablet - take 1 tablet by ORAL route every 6 hours As needed take with food; 30 tablet; jr11 Refills: 0, Product Selection Permitted - Cipro 500 mg Oral Tablet - take 1 tablet by ORAL route every 12 hours for 7 days; 14 tablet; Refills: 0, jr11 Product Selection Permitted Signatures: Dispatcher [employer] Wendy Bailey RN RN tw2 Roseline Mccabe RN RN jg9 Sloan Gr MD MD jr11 Corrections: (The following items were deleted from the chart) 15:11 15:10 Home Meds: None; 15:11 15:10 Home Meds: Glaucoma;
[2021-12-26] MEDS ORDERED: POTASSIUM CL SA 10 MEQ TAB PO ONE (17:20)
[2021-12-26] MEDS ORDERED: CIPROFLOXACIN HCL 500 MG TAB ONE (17:21)
[2021-12-26 17:43] VITALS: TEMP 98.1
[2021-12-26 17:47] VITALS: BP 113/67; O2SAT 98
== END 2021-12-26 17:31 | disposition home or self-care (01) ==
LOC: ER 14:59
DX: N39.0 Urinary tract infection, site not specified (principal); E87.6 Hypokalemia; Z88.0 Allergy status to penicillin
CPT/HCPCS: 96361; 87088; 85025; 87086; 36415; 87077; 87186; 83690; 80053; 74177; 96374; 99284; Q9967; J7030; 81003; 81015

== ENCOUNTER 2022-10-03 08:22 | Day surgery (SDC) | payer BC ==
[2022-10-01 11:46] LABS: Absolute Lymphocytes (CBC) 1.5 K/uL (0.7-4.9); Hematocrit 37.8 % (36.0-45.0); Lymphocytes % 20.9 % (15.3-44.8); MCV 86.5 fL (80-100); RBC Red Blood Cell Count 4.37 M/uL (3.86-4.86)
[2022-10-01 11:55] LABS: Potassium 3.9 mmol/L (3.5-5.1)
[2022-10-03] MEDS ORDERED: Ringers Lactate 1,000 ML IV ONE (08:44)
[2022-10-03] MEDS ORDERED: CEFAZOLIN SODIUM 2 GM/VIAL ONE (08:44)
[2022-10-03] MEDS ORDERED: CEFTRIAXONE 1000 MG/VIAL ONE (09:26)
[2022-10-03] MEDS ORDERED: FENTANYL CITR 100 MCG/2 ML ONE (10:35)
[2022-10-03] MEDS ORDERED: propofoL 200 MG/20 ML VIAL IV ONE (10:35)
[2022-10-03] MEDS ORDERED: MIDAZOLAM HCL 2 MG/2 ML INJ ONE (10:36)
[2022-10-03] MEDS ORDERED: LIDOCAINE 2% MPF 5 ML VIAL ONE (10:36)
[2022-10-03] MEDS ORDERED: ROCURONIUM 50 MG/5 ML VIAL IV ONE (10:36)
[2022-10-03] MEDS ORDERED: BUPIVACAINE 0.25% PF 30 ML VIAL ONE (10:42)
[2022-10-03] MEDS ORDERED: NS 0.9% VIAL 10 ML ONE (10:58)
[2022-10-03] MEDS ORDERED: KETOROLAC 30 MG/ML INJ ONE (11:23)
[2022-10-03] MEDS ORDERED: dexAMETHasone 10 MG/ML VIAL ONE (11:23)
[2022-10-03] MEDS ORDERED: ONDANSETRON 4 MG/2 ML VIAL ONE ×2 (11:23→13:02)
[2022-10-03] MEDS ORDERED: EPHEDRINE SULF 50 MG/ML VIAL ONE (11:27)
[2022-10-03] MEDS ORDERED: GLYCOPYRROLATE 0.2 MG/ML SYR ONE ×2 (11:29→11:53)
[2022-10-03] MEDS ORDERED: NEOSTIGMINE 1 MG/ML -5 ML ONE (11:53)
--- NOTE | 2022-10-03 12:01 | P.OP ---
Preoperative diagnosis: Umbilical Hernia Postoperative diagnosis: Umbilical Hernia Primary procedure: Laparoscopic Umbilical Hernia Repair with mesh Anesthesia: GETA + Local Estimated blood loss: <5cc Specimen: Hernia Contents Findings: ~2cm umbilical hernia with adipose - reducible Complications: None Implants: Bard Ventralite ST mesh with echo 11.4cm round, sorbafix Transferred to: Recovery Room Condition: Good
[2022-10-03] MEDS: HYDROMORPHONE HCL 1 MG/ML INJ ONE ×4 (12:09→12:33)
[2022-10-03] MEDS ORDERED: HYDROMORPHONE HCL 1 MG/ML INJ ONE (12:44)
[2022-10-03 13:31] VITALS: BP 135/72; TEMP 96; O2SAT 97
[2022-10-03] MEDS ORDERED: PROMETHAZINE INJ 25 MG/ML AMP ONE (13:54)
--- NOTE | 2022-10-03 19:03 | OP ---
Date of Procedure: 10/03/2022 Surgeon: Phillip Tripp MD, Preoperative Diagnosis: Umbilical hernia. Postoperative Diagnosis: Umbilical hernia. Procedure Performed: Laparoscopic umbilical hernia repair with mesh. Anesthesia: General endotracheal plus local. Estimated Blood Loss: Less than 5 cc. Specimen: Hernia contents. Findings: 2 cm umbilical hernia with adipose, reducible. Complications: None. Implants: Bard Ventralight ST mesh with Echo Positioning System 1.4 cm round mesh utilized, SorbaFix absorbable fixation tacks. Disposition: The patient was transferred to recovery room in good condition. Procedure In Detail: After informed consent was obtained, patient was brought to the operating room and prepped and draped in the usual sterile fashion after adequate anesthesia was achieved. The area of the left upper quadrant was anesthetized with 0.25% Marcaine and sharply incised. A 5 mm trocar was placed under direct visualization without evidence of any complication. Insufflation was obtaine d at 15 mmHg at this time. No injury to vital structures upon entry into the abdomen. Additional tr ocar was placed in the left lower quadrant and this was similarly anesthetized and sharply incised. A 12 mm trocar was placed under direct visualization without evidence of any complication. I proceed ed to take down the adipose tissue from the anterior abdominal wall to allow for appropriate landing zone of a mesh to be secured. I then removed the adipose tissue from the hernia, which was found to be an umbilical hernia, reducible with some preperitoneal adipose tissue. This was swept clear, take n out of the hernia defect, and sent off for pathologic examination after being removed through the t rocar. No additional hemostatic maneuvers were required. The abdominal wall was in good apposition at this point. I then brought in the 11.4 cm Bard Ventralight mesh and positioned it on the back tab le in preparation for placement and deployment. At this point, I used the Endo Stitch with the 0 V-L oc suture to close the hernia defect, imbricating the hernia sac in the midline in a running fashion with good apposition of the tissue and closure of the defect. At this point, the 11.[address] mesh with Echo Positioning System was deployed in the abdomen in the central portion of the hernia defect and secured to the anterior abdominal wall using a combination of SorbaFix absorbable f ixation tacks. A single crown was placed at this point. The balloon deployment system was then elvin santa and found to be intact on the back table. I then secured the remaining tacks to the anterior abd ominal wall for a double crown type orientation with mesh in good position to the anterior bowel wall . Mesh was in good position at the end of procedure without any additional hemostatic maneuvers requ ired. I then slightly desufflated the abdomen and closed the 12 mm trocar site using a Mario-Brandan on suture passer with 0 Vicryl in interrupted fashion with good approximation of tissues. At this po int, the abdomen was completely desufflated under direct visualization without evidence of any compli cation. Skin was copiously irrigated, closed with 4-0 Monocryl in a running fashion and Dermabond wa s placed over top. The patient tolerated the procedure without evidence of any complication and ojeda sferred to PACU in good condition. All counts were correct at the end of the case. YONI/VAN Voice ID: [id number] Report ID: [id number]
--- NOTE | 2022-10-04 17:32 | EKG ---
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
== END 2022-10-03 14:30 | disposition home or self-care (01) ==
LOC: OR 08:22
PROVIDERS: ATTEND Surgery
PROC: 0WUF4JZ Supplement Abdominal Wall with Synthetic Substitute, Percutaneous Endoscopic Approach (ICD-10-PCS; principal; 2022-10-03 09:45)
DX: K42.9 Umbilical hernia without obstruction or gangrene (principal)
CPT/HCPCS: 93005; 85025; 80048; 36415; 88302; 49652; J2704; J2550; J2001; J2250; J3010; J1100; A4216; J1170 ×2; J2710; J7120; J2405 ×2; C1781; 88304